=== PATIENT | female | born 1950 | race Caucasian/White ===

== ENCOUNTER 2019-07-26 16:41 | Observation (INO) ==
--- NOTE | 2019-07-26 16:45 | Emergency Department Note ---
Disposition Clinical Impression: Pneumonia Qualifiers: Pneumonia type: due to unspecified organism Laterality: right Lung location: lower lobe of lung Qualified Code(s): J18.1 - Lobar pneumonia, unspecified organism Disposition: Admitted As Inpatient Condition: Good Referrals: Pieter Arriaza DO [Primary Care Provider] - Time of Disposition: 18:13 General Adult HPI - General Stated complaint: Pneumonia Time Seen by Provider: 07/26/19 16:45 Nursing Notes Reviewed: Yes Vital Signs Reviewed: Yes - History of Present Illness HPI Narrative: 69 year female presents emergency department with concern for shortness of breath on exertion, cough, sputum production for last several weeks. Patient reports that she is then treated on an outpatient basis for pneumonia. She started out taking Augmentin. After that treatment, she cannot keep better. She has been taking Levaquin. She states she just recently finished up her last dose of medication. She states that she is not getting any better and her primary care provider sent her into the emergency department. She denies any fevers, but does report generalized malaise. Not a smoker. Does report some history of asthma. - Related Data Home Medications Medication Instructions Recorded Confirmed Albuterol Neb [Proventil Neb] 2.5 mg IH Q4HR PRN 06/05/16 06/05/16 Albuterol Sulfate [Albuterol 2 puff IH Q4HR PRN 06/05/16 06/05/16 Inhaler] Ascorbic Acid/Vitamin E/Biotin 1 each PO DAILY 06/05/16 06/05/16 [Hair Skin Nails-Biotin Gummies] Glimepiride [Amaryl] 1 mg PO DAILY 06/05/16 06/05/16 Isosorbide MONOnitrate (24 HR) 60 mg PO DAILY 06/05/16 06/05/16 [Imdur] Loratadine [Claritin] 10 mg PO DAILY 06/05/16 06/05/16 Metformin HCl [Glucophage] 1,000 mg PO BID 06/05/16 06/05/16 Metoprolol [Lopressor] 25 mg PO BID 06/05/16 06/05/16 Montelukast [Singulair] 10 mg PO HS 06/05/16 06/05/16 Multivit-Min/FA/Lycopen/Lutein 1 each PO DAILY 06/05/16 06/05/16 [Centrum Silver Tablet] Ondansetron [Zofran] 8 mg PO Q8H PRN 06/05/16 06/05/16 Pantoprazole Sodium [Protonix] 40 mg PO DAILY 06/05/16 06/05/16 Sucralfate [Carafate] 1 gm PO BID 06/05/16 06/05/16 Tramadol HCl/Acetaminophen 2 each PO Q6H PRN 06/05/16 06/05/16 [Ultracet Tablet] Previous Rx's Medication Instructions Recorded traMADol [Ultram] 50 mg PO Q6HR #21 tablet 06/05/16 Dicyclomine [Bentyl] 10 mg PO QID #20 capsule 03/29/19 Allergies Allergy/AdvReac Type Severity Reaction Status Date / Time doxycycline Allergy Anaphylaxis Verified 06/05/16 10:42 hydrocodone Allergy Anaphylaxis Verified 06/05/16 10:42 All systems ED: reviewed and negative except as stated. Review of Systems: As Per HPI Constitutional: Denies: fever Cardiovascular: Denies: chest pain Respiratory: Reports: cough, dyspnea, sputum production Gastrointestinal: Denies: abdominal pain, nausea, vomiting Genitourinary: Denies: urgency, dysuria, frequency Musculoskeletal: Denies: back pain Neurological: Reports: weakness. Denies: numbness, paresthesias Past Medical History - Past Medical History Attestation: Yes The following information was validated with the patient. Medical history: Reports: asthma, coronary artery disease, diabetes, GERD, hypertension, renal disease Surgical history: Reports: orthopedic, other Psychiatric history: Reports: no psych history - Social History Smoking Status: Never smoker Smokeless Tobacco Status: No Alcohol use: Reports: none Drug use: Reports: none Physical Exam - General Limitations: no limitations General appearance: alert, in no apparent distress - Head Head exam: normocephalic - Eye Eye exam: Present: EOMI - ENT ENT exam: mucous membranes moist - Neck Neck exam: Present: trachea midline - Chest Chest inspection: Present: symmetric chest wall rise - Respiratory Respiratory exam: Present: normal lung sounds bilaterally. Absent: respiratory distress, accessory muscle use - Cardiovascular Cardiovascular exam: Present: regular rate, normal rhythm, normal heart sounds - Abdominal Exam Abdominal exam: Present: soft, Non-Tender. Absent: distention, guarding, rebound, rigidity - Extremities Exam Extremities exam: Present: normal capillary refill. Absent: calf tenderness - Back Exam Back exam: Present: full ROM - Neurological Exam Neurological exam: Present: alert, oriented X3 - Psychiatric Psychiatric exam: Present: normal affect, normal mood - Skin Skin exam: Present: warm, dry, intact, normal color. Absent: rash Course Vital Signs Temperature 98.4 F 07/26/19 16:44 Pulse Rate 97 07/26/19 16:44 Respiratory Rate 18 07/26/19 16:44 Blood Pressure 160/100 07/26/19 16:44 O2 Sat by Pulse Oximetry 98 07/26/19 16:44 Temperature 98.4 F 07/26/19 16:54 Pulse Rate 97 07/26/19 16:54 Respiratory Rate 18 07/26/19 16:54 Blood Pressure 160/100 07/26/19 16:54 O2 Sat by Pulse Oximetry 98 07/26/19 16:54 Oxygen Delivery Oxygen Delivery Room Air Medical Decision Making - MDM Narrative Medical decision making narrative: 69-year-old female presented to emergency department with concern for shortness of breath on exertion, not feeling well after outpatient management and treatment for pneumonia twice. Chest x-ray reveals evidence of new pneumonia. Labs are within normal limits. We will give Rocephin and azithromycin. We have also given steroids and DuoNeb's as patient has this reported history of asthma. There was no wheezes on initial exam and patient did not appear to be in any distress at any time throughout her stay. Patient to be admitted to hospitalist, Dr. Campos. He accepted the patient. Chest X-Ray 07/26/19 17:32 IMPRESSION: Previously noted left lower lobe airspace opacity is not definitely evident currently. New minimal right basilar opacity may relate to atelectasis or developing infiltrate. D/ / 07/26/2019 17:36:57 Darvin Malagon MD / clyde Interpreting Provider: Darvin Malagon MD - Lab Data Result diagrams: 07/26/19 16:58 07/26/19 16:58 Lab Results 07/26/19 07/26/19 07/26/19 Range/Units 16:58 16:58 16:58 WBC 6.8 (4.3-11.1) K/mcL RBC 4.49 (3.82-4.97) M/mcL Hgb 13.4 (11.5-15.4) g/dL Hct 40.9 (35.3-44.9) % MCV 91.1 (83.0-100.0) fL MCH 29.8 (28.0-33.3) pg MCHC 32.8 (31.6-35.5) g/dL RDW 14.6 H (11.5-14.5) % Plt Count 219 (140-400) K/mcL MPV 9.9 (9.4-12.4) fL Immature Gran % 0.9 (0-4) % Seg Neutrophils % 57.5 % Lymphocytes % 30.9 % Monocytes % 8.8 % Eosinophils % 1.5 % Basophils % 0.4 % Neutrophils # 3.9 (1.6-8.9) K/mcL Lymphocytes # 2.1 (0.6-4.6) K/mcL Monocytes # 0.6 (0.0-1.3) K/mcL Eosinophils # 0.1 (0.0-0.6) K/mcL Basophils # 0.0 (0.0-0.2) K/mcL Sodium 140 (136-145) mEq/L Potassium 3.7 (3.5-5.1) mEq/L Chloride 109 H (98-107) mEq/L Carbon Dioxide 24 (23-29) mEq/L BUN 14 (8-23) mg/dL Creatinine 1.17 (0.60-1.20) mg/dL Est GFR ( Amer) 56 L (> 60) Est GFR (Non-Af Amer) 46 L (> 60) BUN/Creatinine Ratio 12 (6-26) Glucose 73 (70-105) mg/dL Calculated Osmolality 289 (280-300) Calcium 9.2 (8.6-10.3) mg/dL Troponin I < 0.03 (< 0.04) ng/mL B-Natriuretic Peptide 53 (Less than 100) pg/mL Attestation Statement - Attestation Attestation: This documentation is done with the assistance of Dragon dictation. Despite efforts made to ensure accuracy, there may be inaccuracies in aquatics manager or spelling and typographical errors. I examined this patient and my medical decision-making was reviewed with the Resident Physician. I agree with the documented findings, disposition and treatment plan as described except to the extent set forth below. Patient was seen and evaluated by Dr. Moralez, I agree with their evaluation and management plan, I supervised care the patient's stay. Patient's seen and evaluated secondary to increased dyspnea was diagnosed with a pneumonia on the outpatient setting with a pneumonia and then is getting worse now tear she sounds more like she has wet could be CHF. She also has a history of CKI. we will repeat workup check a repeat chest x-ray labs and reassess. She is in agreement with plan. I reviewed the residents documentation and agree with the residents assessment and plan of care. I have personally had face to face time with the patient. (Brief History, Brief Exam, and MDM) I personally supervised and was present for the thomas/critical portions of the following procedures completed by the resident: EKG was interpreted by the resident under my supervision, I agree with their interpretation.
[2019-07-26 17:31] LABS: White Blood Count 6.8 K/mcL (4.3-11.1)
[2019-07-26 17:32] LABS: Basophils % 0.4 %; Eosinophils # 0.1 K/mcL (0.0-0.6); Eosinophils % 1.5 %; Hematocrit 40.9 % (35.3-44.9); Hemoglobin 13.4 g/dL (11.5-15.4); Immature Granulocytes % 0.9 % (0-4); Lymphocytes # 2.1 K/mcL (0.6-4.6); Lymphocytes % 30.9 %; Mean Corpuscular HGB Conc 32.8 g/dL (31.6-35.5); Mean Corpuscular Hemoglobin 29.8 pg (28.0-33.3); Mean Corpuscular Volume 91.1 fL (83.0-100.0); Mean Platelet Volume 9.9 fL (9.4-12.4); Monocytes # 0.6 K/mcL (0.0-1.3); Monocytes % 8.8 %; Neutrophils # 3.9 K/mcL (1.6-8.9); Platelet Count 219 K/mcL (140-400); Red Blood Count 4.49 M/mcL (3.82-4.97); Red Cell Distribution Width 14.6 % (11.5-14.5); Segmented Neutrophils % 57.5 %
[2019-07-26 17:48] LABS: BUN/Creatinine Ratio 12 (6-26); Blood Urea Nitrogen 14 mg/dL (8-23); Calcium 9.2 mg/dL (8.6-10.3); Carbon Dioxide 24 mEq/L (23-29); Chloride 109 mEq/L (98-107); Glucose 73 mg/dL (70-105); Osmolality,Calculated 289 (280-300); Potassium 3.7 mEq/L (3.5-5.1); Sodium 140 mEq/L (136-145); Troponin I < 0.03 ng/mL (< 0.04); eGFR For African Americans 56 (> 60); eGFR For Non-African Americans 46 (> 60)
[2019-07-26] MEDS ORDERED: Azithromycin 500 MG in 0.9 % Sodium Chloride 250 ML IVPB ONE (18:06)
[2019-07-26] MEDS ORDERED: cefTRIAXone 1,000 MG in Water for inj. (sterile) 10 ML IVP ONE (18:06)
[2019-07-26] MEDS ORDERED: 0.9 % Sodium Chloride 1,000 ML IVC ONE (18:07)
[2019-07-26] MEDS ORDERED: Ipratropium/Albuterol Neb 3 ML IH ONE (18:10)
[2019-07-26] MEDS ORDERED: predniSONE 20 MG TABLET PO ONE (18:10)
[2019-07-27] MEDS ORDERED: Naloxone 0.4 MG/ML INJ IVP PRN (01:10)
[2019-07-27] MEDS ORDERED: *HR* Dextrose 50 % in Water (Syg) 50 ML SYRINGE IVP PRN (01:13)
[2019-07-27] MEDS ORDERED: D5% in Water 1,000 ML IVC PRN (01:13)
[2019-07-27] MEDS ORDERED: Dextrose Gel 15 GM/37.5 ML TUBE PO PRN ×2 (01:13)
--- NOTE | 2019-07-27 01:37 | Internal Med History&Physical ---
Date of Encounter: 07/26/19 Time of Encounter: 23:30 Internal Medicine - H&P: HPI Chief complaint: Pneumonia Admitted From: Home Plans for Post Hospital Care: Home History of present illness: Ms. Cline is a 69 year old female with past medical history significant for valvular heart disease, hypertension, asthma, GERD, diabetes, and renal disease who presents for complaints of shortness of breath with productive cough over past couple weeks. Was treated outpatient by PCP for pneumonia with round of Amoxicillin without much improvement so then was started on Levaquin which she reports finishing yesterday. States her symptoms seemed to start as her typical allergy symptoms, then progressed to a sinus infection, and then to pneumonia. Has also felt fatigued and had fevers at home as high as 102. States her sy mptoms do not seem similar to what she experiences with her asthma. Had outpatient chest xray completed on 07/20/19 showing left lower lobe pneumonia. After finishing her recent Levaquin and still not feeling improved, she called her PCP who advised her to come to the ER. ER completed a chest xray which showed previously noted left lower lobe airspace opacity is not definitely evident currently and a new minimal right basilar opacity that may relate to atelectasis or developing infiltrate. ER gave the patient fluids, antibiotics, prednisone, and breathing treatment and she is now reporting feeling much improved. Currently denies any headache, chest pain, shortness of breath, abdominal pain, nausea, bowel or bladder changes. Checks her blood sugars regularly and reports they have been averaging in the 100's. Follows regularly with her PCP, Cardiology, and Nephrology. Past Med Surg Social Fam HX - Past Medical History Medical history: asthma, diabetes, GERD, hypertension, renal disease, valvular heart disease Psychiatric history: no psych history - Past Surgical History Surgical History: orthopedic, other, other Additional surgical history: ORIF RIGHT FOOT, gastric bypass. heart valve replacement - Social History Smoking Status: Never smoker Smokeless Tobacco Status: No Alcohol use: none Drug use: none Internal Medicine - H&P: Meds Ascorbic Acid/Vitamin E/Biotin [Hair Skin Nails-Biotin Gummies] 1 each PO DAILY 06/05/16 [History] Glimepiride [Amaryl] 2 mg PO DAILY 06/05/16 [History] Loratadine [Claritin] 10 mg PO DAILY 06/05/16 [History] Metformin HCl [Glucophage] 1,000 mg PO BID 06/05/16 [History] Metoprolol [Lopressor] 25 mg PO BID 06/05/16 [History] Montelukast [Singulair] 10 mg PO HS 06/05/16 [History] Multivit-Min/FA/Lycopen/Lutein [Centrum Silver Tablet] 1 each PO DAILY 06/05/16 [History] Pantoprazole Sodium [Protonix] 40 mg PO DAILY 06/05/16 [History] Sucralfate [Carafate] 1 gm PO BID 06/05/16 [History] Ferrous Sulfate [Iron] 325 mg PO DAILY 07/26/19 [History] Fluticasone Propionate Nasal [Flonase] 50 mcg NS BID 07/26/19 [History] Losartan [Cozaar] 25 mg PO DAILY 07/26/19 [History] Allergy/AdvReac Type Severity Reaction Status Date / Time doxycycline Allergy Anaphylaxis Verified 06/05/16 10:42 hydrocodone Allergy Anaphylaxis Verified 06/05/16 10:42 All Systems PM: A 10-system review of systems was performed and is negative for pertinent findings except as documented above in the HPI. - Constitutional Vitals: Temp Pulse Resp BP Pulse Ox 97.9 F 102 15 141/89 92 07/27/19 00:00 07/27/19 00:00 07/27/19 00:00 07/27/19 00:00 07/27/19 00:00 Exam: General: Alert and oriented. Pleasant in no distress. Skin:Normal color, no rash, no lesions. HEENT:Pupils equal, round and reactive. Cardiovascular:Normal S1 & S2, no rubs, murmurs or gallops. No JVD. Pulse regular. Lungs:Breath sounds decreased, no wheezes or crackles. Respirations easy non labored. Abdomen:Soft, non-tender, no rigidity. Extremities:No deformity, no edema or tenderness, no joint swelling or clubbing. Neurological:Normal cognition and motor skills. Pulses:Carotid and radial pulses normal +2. Rest of the physical exam is non contributory. Internal Med - H&P Results - Labs CBC & Chem 7: 07/26/19 16:58 07/26/19 16:58 Labs: Short CBC 07/26/19 Range/Units 16:58 WBC 6.8 (4.3-11.1) K/mcL Hgb 13.4 (11.5-15.4) g/dL Hct 40.9 (35.3-44.9) % Plt Count 219 (140-400) K/mcL Neutrophils # 3.9 (1.6-8.9) K/mcL BMP 07/26/19 16:58 Sodium 140 Potassium 3.7 Chloride 109 H Carbon Dioxide 24 BUN 14 Creatinine 1.17 Glucose 73 Calcium 9.2 Cardiac Enzymes 07/26/19 Range/Units 16:58 Troponin I < 0.03 (< 0.04) ng/mL - Impressions ITS Impressions Chest X-Ray 07/26/19 17:32 IMPRESSION: Previously noted left lower lobe airspace opacity is not definitely evident currently. New minimal right basilar opacity may relate to atelectasis or developing infiltrate. D/ / 07/26/2019 17:36:57 Darvin Malagon MD / clyde Interpreting Provider: Darvin Malagon MD - Assessment and Plan (1) Pneumonia Current Visit: Yes Status: Suspected Assessment and plan: Presents for fatigue and shortness of breath with productive cough. Recently was treated for left lower lobe pneumonia as outpatient with Amoxicillin and then Levaquin which she reports finishing yesterday but still not feeling well so PCP advised to come to ER. Chest xray obtained in ER shows previously noted left lower lobe airspace opacity is not definitely evident currently and a new minimal right basilar opacity that may relate to atelectasis or developing infiltrate. ER started patient on Azithromycin and Ceftriaxone, will continue same. Blood cultures pending. Continuous pulse oximety. Qualifiers: Pneumonia type: due to unspecified organism Laterality: right Lung location: lower lobe of lung Qualified Code(s): J18.1 - Lobar pneumonia, unspecified organism (2) Chronic kidney disease Current Visit: Yes Status: Chronic Assessment and plan: GFR currently at 46, BUN and Creatinine within normal limits. Appears at baseline. Avoid nephrotoxins. Repeat labs ordered. Qualifiers: Chronic kidney disease stage: unspecified stage Qualified Code(s): N18.9 - Chronic kidney disease, unspecified (3) Diabetes mellitus Current Visit: Yes Status: Chronic Assessment and plan: Hold home diabetic medications. Sliding scale insulin ordered. Accu-Chek's ordered. Qualifiers: Diabetes mellitus type: type 2 Qualified Code(s): E11.9 - Type 2 diabetes mellitus without complications (4) Hypertension Current Visit: Yes Status: Chronic Assessment and plan: Continue home medications once verified. Qualifiers: Hypertension type: unspecified Qualified Code(s): I10 - Essential (primary) hypertension - Time Spent With Patient Total time spent is greater than 50% in coordination of care (as documented) at patient's floor/unit and/or counseling patient:
[2019-07-27 01:53] LABS: Basophils % 0.2 %; Hematocrit 36.3 % (35.3-44.9); Lymphocytes # 0.5 K/mcL (0.6-4.6); Lymphocytes % 8.6 %; Mean Corpuscular HGB Conc 32.5 g/dL (31.6-35.5); Mean Corpuscular Volume 89.2 fL (83.0-100.0); Mean Platelet Volume 9.5 fL (9.4-12.4); Monocytes # 0.1 K/mcL (0.0-1.3); Monocytes % 1.8 %; Neutrophils # 5.4 K/mcL (1.6-8.9); Platelet Count 175 K/mcL (140-400); Red Blood Count 4.07 M/mcL (3.82-4.97); Red Cell Distribution Width 14.7 % (11.5-14.5); Segmented Neutrophils % 88.4 %; White Blood Count 6.1 K/mcL (4.3-11.1)
[2019-07-27 01:56] LABS: Hemoglobin 11.8 g/dL (11.5-15.4)
[2019-07-27 02:13] LABS: Calcium 8.3 mg/dL (8.6-10.3); Potassium 4.1 mEq/L (3.5-5.1)
[2019-07-27] MEDS: *HR* Heparin 5,000 UNIT/ML VIAL SQ SCH ×2 (06:44→18:03)
[2019-07-27] MEDS: Insulin LISPRO 300 UNITS/3 ML VIAL SQ SCH ×3 (08:29→16:30)
[2019-07-27] MEDS: Multivit/Ca/Min/Fe/FA 1 TAB TABLET PO SCH (08:30)
[2019-07-27] MEDS: Loratadine 10 MG TABLET PO SCH (08:30)
[2019-07-27] MEDS: Sucralfate 1 GM TABLET PO SCH ×2 (08:30→20:59)
[2019-07-27] MEDS: Fluticasone Propionate Nasal 50 MCG/SPRAY BOTTLE NS SCH ×2 (08:31→21:01)
[2019-07-27] MEDS ORDERED: NON-FORMULARY MEDICATION 1 EACH EACH (Ascorbic Acid/Vitamin E/Biotin [Hair Skin Nails-Biot PO SCH (09:00)
--- NOTE | 2019-07-27 12:29 | Internal Med Progress Note ---
Hospitalist Progress Note - Encounter Date of Encounter: 07/27/19 Time of Encounter: 10:24 - Subjective Interval History: Patient seen at bedside. Denies chest pain, shortness of breath, palpitations. Denies fever, chills, rigors. No acute event overnight. Feeling better than yesterday . - Exam Vitals: Temp Pulse Resp BP Pulse Ox 97.6 F 91 14 144/95 96 07/27/19 11:40 07/27/19 11:40 07/27/19 11:40 07/27/19 11:40 07/27/19 11:40 Exam: General: Alert and oriented. Patient in no distress. Skin:Normal color, no rash, no lesions. HEENT:Pupils equal, round and reactive. Cardiovascular:Normal S1 & S2, no rubs, murmurs or gallops. No JVD. Pulse regular. Lungs:Breath sounds decreased, no wheezes or crackles. Respirations easy non labored. Abdomen:Soft, non-tender, no rigidity. Extremities:No deformity, no edema or tenderness, no joint swelling or clubbing. Neurological:Normal cognition and motor skills. Pulses:Carotid and radial pulses normal +2. Rest of the physical exam is non contributory. - Assessment and Plan (1) Pneumonia Current Visit: Yes Status: Suspected Assessment and Plan: Presents for fatigue and shortness of breath with productive cough. Recently was treated for left lower lobe pneumonia as outpatient with Amoxicillin and then Levaquin which she reports finishing yesterday but still not feeling well so PCP advised to come to ER. Chest xray obtained in ER shows previously noted left lower lobe airspace opacity is not definitely evident currently and a new minimal right basilar opacity that may relate to atelectasis or developing infiltrate. Continue ceftriaxone and azithromycin. Blood cultures pending. Continuous pulse oximety. Ordered breathing treatments (2) Chronic kidney disease Current Visit: Yes Status: Chronic Assessment and Plan: Cr worsened to 1.45 from 1.17. Start on IV fluids. Recheck Cr tomorrow Avoid nephrotoxins. (3) Diabetes mellitus Current Visit: Yes Status: Chronic Assessment and Plan: Morning blood glucose levels weere veru high Hold home diabetic medications. Sliding scale insulin ordered. Added insulin detemir Accu-Chek's ordered. ADA diet (4) Hypertension Current Visit: Yes Status: Chronic Assessment and Plan: Continue home medications (5) Acute kidney injury Current Visit: Yes Status: Acute Assessment and Plan: Baseline cr of 1.1-1.2, current 1.45 Started IV fludis Ordered repeat BMP - Time Spent with Patient Total time spent is greater than 50% in coordination of care (as documented) at patient's floor/unit and/or counseling patient: Internal Medicine: Result - Labs CBC & Chem 7: 07/27/19 01:41 07/27/19 01:41 Labs: Short CBC 07/26/19 07/27/19 Range/Units 16:58 01:41 WBC 6.8 6.1 (4.3-11.1) K/mcL Hgb 13.4 11.8 D (11.5-15.4) g/dL Hct 40.9 36.3 (35.3-44.9) % Plt Count 219 175 (140-400) K/mcL Neutrophils # 3.9 5.4 (1.6-8.9) K/mcL BMP 07/26/19 07/27/19 16:58 01:41 Sodium 140 139 Potassium 3.7 4.1 Chloride 109 H 109 H Carbon Dioxide 24 20 L BUN 14 15 Creatinine 1.17 1.45 H Glucose 73 453 H Calcium 9.2 8.3 L Cardiac Enzymes 07/26/19 Range/Units 16:58 Troponin I < 0.03 (< 0.04) ng/mL - Impressions Impressions Chest X-Ray 07/26/19 17:32 IMPRESSION: Previously noted left lower lobe airspace opacity is not definitely evident currently. New minimal right basilar opacity may relate to atelectasis or developing infiltrate. D/ / 07/26/2019 17:36:57 Darvin Malagon MD / clyde Interpreting Provider: Darvin Malagon MD Consult Discharge Plan - Plan Referrals: Pieter Arriaza DO [Primary Care Provider] - ____ (1) Pneumonia Qualifiers: Pneumonia type: due to unspecified organism Laterality: right Lung location: lower lobe of lung Qualified Code(s): J18.1 - Lobar pneumonia, unspecified organism (2) Chronic kidney disease Qualifiers: Chronic kidney disease stage: unspecified stage Qualified Code(s): N18.9 - Chronic kidney disease, unspecified (3) Diabetes mellitus Qualifiers: Diabetes mellitus type: type 2 Qualified Code(s): E11.9 - Type 2 diabetes mellitus without complications (4) Hypertension Qualifiers: Hypertension type: unspecified Qualified Code(s): I10 - Essential (primary) hypertension
[2019-07-27] MEDS: 0.9 % Sodium Chloride 1,000 ML IVC SCH (12:43)
[2019-07-27] MEDS ORDERED: cefTRIAXone 1,000 MG in Water for inj. (sterile) 10 ML IVP SCH (16:00)
[2019-07-27] MEDS: Ipratropium/Albuterol Neb 3 ML IH SCH ×2 (16:03→22:48)
[2019-07-27] MEDS ORDERED: Azithromycin 500 MG in 0.9 % Sodium Chloride 250 ML IVPB SCH (18:00)
[2019-07-27] MEDS ORDERED: Insulin DETEMIR 100 UNIT/ML X5UNITS SQ SCH (21:00)
[2019-07-27] MEDS ORDERED: Insulin LISPRO 300 UNITS/3 ML VIAL SQ SCH (21:00)
[2019-07-28] MEDS: 0.9 % Sodium Chloride 1,000 ML IVC SCH (00:03)
[2019-07-28] MEDS: Ipratropium/Albuterol Neb 3 ML IH SCH ×2 (04:41→10:42)
[2019-07-28] MEDS: *HR* Heparin 5,000 UNIT/ML VIAL SQ SCH (05:50)
[2019-07-28 07:23] VITALS: BP 138/79
--- NOTE | 2019-07-28 07:33 | Electrocardiograph Report ---
[facility] Date: 2019-07-26 Pat Name: Meenakshi Cline Department: [id number] Room: E30 Gender: F [employer]: : [id number] Requested By: Morales Moralez Order Number: [id number] Reading MD: Kenny Anguiano Measurements Intervals Martin Rate: 92 P: 3 TN: 157 QRS: -40 QRSD: 88 T: 32 QT: 356 QTc: 441 Interpretive Statements Sinus arrhythmia Left axis deviation Abnormal R-wave progression, late transition Electronically Signed On 07-28-2019 7:30:54 EDT by Kenny Anguiano
[2019-07-28] MEDS: Insulin LISPRO 300 UNITS/3 ML VIAL SQ SCH (08:06)
[2019-07-28] MEDS: Fluticasone Propionate Nasal 50 MCG/SPRAY BOTTLE NS SCH (08:07)
[2019-07-28] MEDS: Sucralfate 1 GM TABLET PO SCH (08:07)
[2019-07-28] MEDS: Multivit/Ca/Min/Fe/FA 1 TAB TABLET PO SCH (08:07)
[2019-07-28] MEDS: Loratadine 10 MG TABLET PO SCH (08:07)
[2019-07-28 09:10] LABS: Calcium 8.5 mg/dL (8.6-10.3); Potassium 3.2 mEq/L (3.5-5.1)
--- NOTE | 2019-07-28 09:30 | Discharge Summary ---
- NOTES TO OUTPATIENT PROVIDER Notes to Outpatient Provider: Presented with the productive cough, condition improved with ceftriaxone and azithromycin, will discharge with augmentin and azithromycin considering she responded to them Orders not resulted at time of discharge: Pending orders 07/26/19 20:30 Culture,Blood [] Stat Date of Encounter: 07/28/19 Time of Encounter: 09:10 - Discharge Diagnosis (1) Pneumonia Priority: Primary Status: Suspected Qualifiers: Pneumonia type: due to unspecified organism Laterality: right Lung location: lower lobe of lung Qualified Code(s): J18.1 - Lobar pneumonia, unspecified organism (2) Chronic kidney disease Priority: Secondary Status: Chronic Qualifiers: Chronic kidney disease stage: unspecified stage Qualified Code(s): N18.9 - Chronic kidney disease, unspecified (3) Diabetes mellitus Priority: Secondary Status: Chronic Qualifiers: Diabetes mellitus type: type 2 Qualified Code(s): E11.9 - Type 2 diabetes mellitus without complications (4) Hypertension Priority: Secondary Status: Chronic Qualifiers: Hypertension type: unspecified Qualified Code(s): I10 - Essential (primary) hypertension (5) Acute kidney injury Priority: Secondary Status: Acute Hospital course: Ms. Cline is a 69 year old female with a past medical history significant for hypertension, asthma, diabetes mellitus, presented to the hospital because of th e productive cough and shortness of breath. Patient was initially diagnosed with sinusitis, was taking Augmentin or Levaquin as an outpatient without any relief. The PCP recommended to go to the hospital with for IV antibiotics. Chest x-ray was done in the emergency department which showed new minimal right basilar opacity which may correlate to atelectasis and infiltrate. Patient was started on IV antibiotics and breathing treatments. Patient markedly improved over 2 days. Her shortness of breath resolved. She was able to tolerate her normal activities without any shortness of breath. Discussed with the patient that she can be discharged back to home. She will be discharged on Augmentin for 4 more days and azithromycin for 3 more days and she responded to these antibiotics. She is also recommended to use albuterol rescue inhaler as needed. She has a nebulizer at home, she also has DuoNeb, advised the patient to use the DuoNeb breathing treatments for the next few days. Patient is agreeable to the plan. She also developed acute kidney injury in the hospital, was given IV fluids, repeat kidney functions today are normal. Patient is being discharged in stable condition - Time Spent with Patient Total time spent providing and/or coordinating discharge services: 25 minutes - Discharge Medications Prescriptions: New Amoxicillin/Clavulanate [Augmentin] 875 mg PO BIDWM 4 Days #8 tablet Azithromycin [Zithromax Tri-Abdoul] 500 mg PO DAILY 3 Days #3 tablet Albuterol Sulfate [Proventil Inhaler] 1 puff IH Q6H PRN #1 inhaler PRN Reason: Wheezing/SOB Continued Montelukast [Singulair] 10 mg PO HS Metoprolol [Lopressor] 25 mg PO BID Loratadine [Claritin] 10 mg PO DAILY Sucralfate [Carafate] 1 gm PO BID Pantoprazole Sodium [Protonix] 40 mg PO DAILY Multivit-Min/FA/Lycopen/Lutein [Centrum Silver Tablet] 1 each PO DAILY Metformin HCl [Glucophage] 1,000 mg PO BID Glimepiride [Amaryl] 2 mg PO DAILY Ascorbic Acid/Vitamin E/Biotin [Hair Skin Nails-Biotin Gummies] 1 each PO DAILY Ferrous Sulfate [Iron] 325 mg PO DAILY Fluticasone Propionate Nasal [Flonase] 50 mcg NS BID Losartan [Cozaar] 25 mg PO DAILY Home Medications: Ascorbic Acid/Vitamin E/Biotin [Hair Skin Nails-Biotin Gummies] 1 each PO DAILY 06/05/16 [History] Glimepiride [Amaryl] 2 mg PO DAILY 06/05/16 [History] Loratadine [Claritin] 10 mg PO DAILY 06/05/16 [History] Metformin HCl [Glucophage] 1,000 mg PO BID 06/05/16 [History] Metoprolol [Lopressor] 25 mg PO BID 06/05/16 [History] Montelukast [Singulair] 10 mg PO HS 06/05/16 [History] Multivit-Min/FA/Lycopen/Lutein [Centrum Silver Tablet] 1 each PO DAILY 06/05/16 [History] Pantoprazole Sodium [Protonix] 40 mg PO DAILY 06/05/16 [History] Sucralfate [Carafate] 1 gm PO BID 06/05/16 [History] Ferrous Sulfate [Iron] 325 mg PO DAILY 07/26/19 [History] Fluticasone Propionate Nasal [Flonase] 50 mcg NS BID 07/26/19 [History] Losartan [Cozaar] 25 mg PO DAILY 07/26/19 [History] Albuterol Sulfate [Proventil Inhaler] 1 puff IH Q6H PRN #1 inhaler 07/28/19 [Rx] Amoxicillin/Clavulanate [Augmentin] 875 mg PO BIDWM 4 Days #8 tablet 07/28/19 [Rx] Azithromycin [Zithromax Tri-Abdoul] 500 mg PO DAILY 3 Days #3 tablet 07/28/19 [Rx] Allergies/Adverse Reactions: Allergy/AdvReac Type Severity Reaction Status Date / Time doxycycline Allergy Anaphylaxis Verified 06/05/16 10:42 hydrocodone Allergy Anaphylaxis Verified 06/05/16 10:42 Date of admission: 07/26/19 18:32 Primary care physician: Pieter Arriaza DO - Constitutional Vitals: Temp Pulse Resp BP Pulse Ox 98.3 F 79 14 138/79 96 07/28/19 07:20 07/28/19 07:20 07/28/19 07:20 07/28/19 07:20 07/28/19 07:20 Exam: General: Alert and oriented. Patient in no distress. Skin:Normal color, no rash, no lesions. HEENT:Pupils equal, round and reactive. Cardiovascular:Normal S1 & S2, no rubs, murmurs or gallops. No JVD. Pulse regular. Lungs:Breath sounds decreased, no wheezes or crackles. Respirations easy non labored. Abdomen:Soft, non-tender, no rigidity. Extremities:No deformity, no edema or tenderness, no joint swelling or clubbing. Neurological:Normal cognition and motor skills. Pulses:Carotid and radial pulses normal +2. Rest of the physical exam is non contributory. - Patient Status Disposition: Home, Self-Care Condition: Good - Discharge Instructions Follow Up With: Pieter Arriaza DO [Primary Care Provider] - Forms: ED Satisfaction Letter - Diet and Activity Activity: increase activity as tolerated Diet: advance to your usual diet
== END 2019-07-28 11:54 | disposition home or self-care (01) ==
LOC: 2NENU 16:41 → EMEROOARM 16:41 → SUATTDRO 18:32 → 2NENU 20:36
PROVIDERS: ADMIT Internal Medicine; ATTEND Internal Medicine